=== PATIENT | male | born 1945 | race Caucasian/White ===

== ENCOUNTER 2022-04-02 14:43 | Outpatient (CLI) | payer MEDICARE, OTHER | END 2022-04-02 14:44 | disposition home or self-care (01) | LOC: CSHMRI 14:43 | PROVIDERS: ATTEND Otolaryngology Otolaryngic Allergy | DX: H90.3 Sensorineural hearing loss, bilateral (principal); R90.82 White matter disease, unspecified | CPT/HCPCS: 70553; 82565 ==

== ENCOUNTER 2022-04-10 13:35 | Outpatient (CLI) | payer MEDICARE, OTHER | END 2022-04-10 13:36 | disposition home or self-care (01) | LOC: CSHMRI 13:35 | PROVIDERS: ATTEND Orthopaedic Surgery | DX: M54.16 Radiculopathy, lumbar region (principal); Z98.890 Other specified postprocedural states; M47.816 Spondylosis without myelopathy or radiculopathy, lumbar region | CPT/HCPCS: 72148 ==